=== PATIENT | male | born 1970 | race Caucasian/White ===

== ENCOUNTER 2017-02-27 07:59 | Emergency (ER) | payer OTHER ==
[2017-02-27 08:17] VITALS: BP 131/85
--- NOTE | 2017-02-27 08:30 | ED ---
Throat Pain/Nasal Congestion - HPI Summary HPI Summary: 46 yr old male with complaint of itching and watering to the right eye since this morning. He states he does not wear contact lenses. He denies FB sensation. He is visiting from the [facility] for graduation weekend here in [place] for a family member. He says he was shaking hands with many people over the weekend. He states his right eye is watery, and clear drainage now. No symptoms in left eye yet. He has no other symptoms. - History of Current Complaint Chief Complaint: UCEye Time Seen by Provider: 02/27/17 08:18 - Allergies/Home Medications Allergies/Adverse Reactions: Allergies Allergy/AdvReac Type Severity Reaction Status Date / Time Phenothiazines Allergy Severe See Comment Verified 02/27/17 08:10 Home Medications: Home Medications Loratadine [Claritin 10 MG CAP] 10 mg PO DAILY 02/27/17 [History Confirmed 02/27] Losartan/HCTZ 100/25 (NF) [Hyzaar 100/25 (NF)] 1 tab PO DAILY 02/27/17 [History Confirmed 02/27/17] PMH/Surg Hx/FS Hx/Imm Hx Cardiovascular History: Reports: Hx Hypertension Infectious Disease History: No Infectious Disease History: Denies: Traveled Outside the [place] in Last 30 Days - Social History Alcohol Use: Occasionally Substance Use Type: Reports: None Smoking Status (MU): Never Smoked Tobacco Review of Systems Constitutional: Negative Positive: Drainage All Other Systems Reviewed And Are Negative: Yes Physical Exam Triage Information Reviewed: Yes Vital Signs On Initial Exam: Initial Vitals Temp Pulse Resp BP Pulse Ox 98.0 F 93 16 131/85 96 02/27/17 08:12 02/27/17 08:12 02/27/17 08:12 02/27/17 08:12 02/27/17 08:12 Vital Signs Reviewed: Yes Appearance: Positive: Well-Appearing, No Pain Distress Skin: Positive: Warm Head/Face: Positive: Normal Head/Face Inspection Eyes: Positive: EOMI, YARITZA, Conjunctiva Inflammed - right eye, and less so in the left eye. No purulent drainage seen. ENT: Positive: Pharynx normal. Negative: Nasal drainage Neck: Positive: Supple, Nontender Respiratory/Lung Sounds: Positive: Clear to Auscultation, Breath Sounds Present Cardiovascular: Positive: Normal, RRR Abdomen Description: Positive: Nontender Musculoskeletal: Positive: Normal, Strength/ROM Intact Neurological: Positive: Normal, Sensory/Motor Intact, Alert, Oriented to Person Place, Time, CN Intact II-III Psychiatric: Positive: Normal Diagnostics - Vital Signs Vital Signs Temp Pulse Resp BP Pulse Ox 02/27/17 08:12 98.0 F 93 16 131/85 96 - Laboratory Lab Statement: Any lab studies that have been ordered have been reviewed, and results considered in the medical decision making process. EENT Course/Dx - Course Course Of Treatment: 46 yr old male with conjunctivitis right eye and early in left. Rx sulfacetamide. - Diagnoses Provider Diagnoses: Conjunctivitis Discharge - Discharge Plan Condition: Good Disposition: HOME Prescriptions: Sulfacetamide 10 % OPTH.SARA* [Sulamyd 10% Opth*] 1 drop BOTH EYES Q4H #1 btl Patient Education Materials: Conjunctivitis (ED) Referrals: [facility] [Outside]
== END 2017-02-27 08:33 | disposition home or self-care (01) ==
LOC: UCCORT 07:59
DX: H10.9 Unspecified conjunctivitis (principal); I10 Essential (primary) hypertension
CPT/HCPCS: 99202; G0463